=== PATIENT | female | born 1965 | race Hispanic/Latino ===

== ENCOUNTER → 2018-01-11 | Outpatient (CLI) | payer OTHER | END | disposition home or self-care (01) | LOC: RAH 09:26 | PROVIDERS: ATTEND Internal Medicine | DX: Z12.31 Encounter for screening mammogram for malignant neoplasm of breast (principal) | CPT/HCPCS: 77067 ==

== ENCOUNTER → 2019-03-04 | Outpatient (CLI) | payer BC | END | disposition home or self-care (01) | LOC: RAH 09:19 | PROVIDERS: ATTEND Family Medicine | DX: Z12.31 Encounter for screening mammogram for malignant neoplasm of breast (principal) | CPT/HCPCS: 77067 ==

== ENCOUNTER → 2019-08-25 | Outpatient (CLI) | payer BC | END | disposition home or self-care (01) | LOC: RAH 09:09 | PROVIDERS: ATTEND Family Medicine | DX: M47.817 Spondylosis without myelopathy or radiculopathy, lumbosacral region (principal) | CPT/HCPCS: 72100 ==

== ENCOUNTER → 2020-09-14 | Outpatient (CLI) | payer BC | END | disposition home or self-care (01) | LOC: RAH 09:04 | PROVIDERS: ATTEND Family Medicine | DX: Z12.31 Encounter for screening mammogram for malignant neoplasm of breast (principal) | CPT/HCPCS: 77067 ==

== ENCOUNTER 2020-09-23 21:44 | Emergency (ER) | payer BC ==
[~2020-09-23] VITALS: Ht 157.5 cm; Wt 93.4 kg
[2020-09-23] MEDS ORDERED: 0.9%NACL 1000ML 1,000 ML IV ONE ×2 (21:45→23:00)
[2020-09-23 22:59] LABS: APPEARANCE,URINE Clear (CLEAR); BILIRUBIN,URINE Negative (NEGATIVE); COLOR,URINE Dark Yellow (YELLOW); GLUCOSE, URINE (UA) Negative (NEGATIVE); KETONES,URINE Negative (NEGATIVE); LEUKOCYTE ESTERASE ,URINE Negative (NEGATIVE); NITRATE,URINE Negative (NEGATIVE); OCCULT BLOOD,URINE Negative (NEGATIVE); PH,URINE 5.5 (5.0-8.0); PROTEIN,URINE Trace mg/dL (NEGATIVE)
[2020-09-23] MEDS ORDERED: KETOROLAC 30MG VIAL (30MG/ML) IV ONE (23:00)
[2020-09-23] MEDS ORDERED: ONDANSETRON 4MG INJ IVP ONE (23:00)
[2020-09-23] MEDS ORDERED: METOCLOPRAMIDE 10 MG/2 ML VIAL IM ONE (23:00)
[2020-09-23 23:19] LABS: BASOPHILS % (AUTO) 0.2 % (0.0-5.0); HEMATOCRIT 42.5 % (36-48); LYMPHOCYTES % (AUTO) 21.8 % (21.0-51.0); MEAN CORPUSCULAR HEMOGLOBIN 28.5 pg (27.0-33.0); MEAN CORPUSCULAR HGB CONC 32.7 g/dL (32.0-36.0); MEAN CORPUSCULAR VOLUME 87.3 fL (79-99); MONOCYTES % (AUTO) 10.2 % (3.0-13.0); NEUTROPHILS % (AUTO) 67.4 % (40.0-77.0); PLATELET COUNT (AUTO) 193 K/uL (130-400); RED BLOOD CELL COUNT(AUTO) 4.87 MIL/uL (4.00-5.50); RED CELL DISTRIBUTION WIDTH 14.9 % (11.0-15.5); WHITE BLOOD COUNT (AUTO) 5.6 K/uL (4.8-10.8)
[2020-09-23 23:35] LABS: CREATININE 0.8 mg/dL (0.5-1.5)
[2020-09-23 23:40] LABS: ALBUMIN 3.2 g/dL (3.5-5.0); BILIRUBIN,TOTAL 0.4 mg/dL (0.2-1.0); TOTAL PROTEIN, SERUM 7.4 g/dL (6.0-8.3)
[2020-09-24] MEDS ORDERED: ONDA4TAB10 PO (01:07)
[2020-09-24] MEDS ORDERED: PANT40TA54 PO (01:07)
[2020-09-24] MEDS ORDERED: METO-296 PO (01:07)
[2020-09-24] MEDS ORDERED: DICY20TA2 PO (01:07)
[2020-09-24] MEDS ORDERED: MELO7.5T12 PO (01:07)
[2020-09-24] MEDS ORDERED: ACETAMINOPHEN 500 MG TABLET PO ONE (01:30)
[2020-09-24 01:41] VITALS: BP 136/70
== END 2020-09-24 01:46 | disposition home or self-care (01) ==
LOC: EDH 21:44
DX: U07.1 COVID-19 (principal); E86.9 Volume depletion, unspecified; R10.13 Epigastric pain; Z79.899 Other long term (current) drug therapy; I10 Essential (primary) hypertension; Z79.1 Long term (current) use of non-steroidal anti-inflammatories (NSAID); R19.7 Diarrhea, unspecified
CPT/HCPCS: 36415; 71045; 80053; 81003; 83690; 85025; 96361; 96372; 96374; 96375; 99284; J1885; J2405; J2765; J7030

== ENCOUNTER → 2022-12-18 | Outpatient (CLI) | payer BC ==
[~2022-12-18] MED LIST: DICY20TA2 PO; MELO7.5T12 PO; METO-296 PO; ONDA4TAB10 PO; PANT40TA54 PO
== END | disposition home or self-care (01) ==
LOC: RAH 10:46
PROVIDERS: ATTEND Family Medicine
DX: Z12.31 Encounter for screening mammogram for malignant neoplasm of breast (principal)
CPT/HCPCS: 77067

== ENCOUNTER 2024-04-16 02:32 | Emergency (ER) | payer BC ==
[~2024-04-16] VITALS: Ht 157.5 cm; Wt 106.1 kg
[~2024-04-16 02:32] MED LIST changes: +ONDA-243 PO; -ONDA4TAB10 PO
[2024-04-16 02:33] VITALS: TEMP 98.1
--- NOTE | 2024-04-16 03:35 | ERN ---
ED Note History of Present Illness Stated Complaint: FOOT PAIN Chief Complaint: FOOT INJURY/PAIN Time Seen by MD: 03:02 Dictation: This is a 59-year-old female who came to the emergency room with complaints of left great toe pain. This started yesterday and today it became extremely severe that she could not sleep Pain is located at the base of the great toe of left foot. No history of any injury no falls no fever chills or rigors. 184/88 69 18 98.1 96% Allergies: Coded Allergies: No Known Drug Allergies (Unverified Allergy, Unknown, 09/23/20) Home Meds Active Scripts Prednisone (Prednisone) 20 Mg Tablet, 1 TAB PO AD for 6 Days, #14 TAB 0 Refills TAKE 1 TAB BY MOUTH THREE TIMES PER DAY X3 DAYS, THEN TAKE 1 TAB BY MOUTH TWICE A DAY X2 DAYS, THEN TAKE 1 TAB BY MOUTH ONCE A DAY X1 DAY. Prov:PAULINO AGUILERA MD 04/16/24 Colchicine (Colchicine) 0.6 Mg Capsule, 0.6 MG PO TID for 15 Days, #45 CAP 0 Refills Prov:PAULINO AGUILERA MD 04/16/24 Metoclopramide HCl (Reglan) 10 Mg Tablet, 10 MG PO TIDP, #20 TAB 0 Refills Prov:DARIAN CARRERA MD 09/24/20 Pantoprazole Sodium (Pantoprazole Sodium) 40 Mg Tablet.dr, 40 MG PO DAILY, #10 TAB 0 Refills Prov:DARIAN CARRERA MD 09/24/20 Ondansetron (Ondansetron Odt) 4 Mg Tab.rapdis, 4 MG PO Q6HPRN, #20 TAB 0 Refills Prov:DARIAN CARRERA MD 09/24/20 Meloxicam (Mobic) 7.5 Mg Tablet, 7.5 MG PO DAILY, #10 TAB 0 Refills Prov:DARIAN CARRERA MD 09/24/20 Dicyclomine HCl (Bentyl) 20 Mg Tab, 20 MG PO Q6HPRN, #20 TAB 0 Refills Prov:DARIAN CARRERA MD 09/24/20 Past Medical History Past Medical History: Arthritis, Hypertension Surgical History: BTL Family History: Negative History: Not Applicable RN Note Reviewed/Agreed w/PFSH: Yes Review of System Dictation Constitutional: Negative for fever,chills, and weight loss Eyes: Negative for injury, pain,redness, and discharge ENT: Negative for injury,pain or swelling Cardiovascular: Negative for chest pain, palpitations, and edema Respiratory: Negative for shortness of breath, cough, and wheezing, Abdomen/GI: Negative for abdominal pain, nausea, vomiting, diarrhea, and constipation Back: Negative for injury and pain : Negative for injury, bleeding and discharge MS/Extremity: Negative for injury and deformity Skin: Negative for rash, and discoloration Neuro: Negative for headache, weakness, numbness, tingling, and seizure Psych: Negative for suicide ideation, homicidal ideation, and hallucinations Initial Vital Sign VS Vital Signs Date Time Temp Pulse Resp B/P (MAP) Pulse Ox O2 Delivery O2 Flow Rate FiO2 04/16/24 02:33 98.1 89 18 184/88 96 Room Air 0 04/16/24 04:40 21 Physical Exam Dictation General: awake, alert, NAD Head/Face: Normocephalic, atraumatic Eyes: PERRL, EOMI, vision at baseline ENT: oral cavity clear, TMs clear, no signs of infection Neck: Trachea midline, supple, no nuchal rigidity Cardiovascular: RRR, normal S1/S2, No MRGs, no JVD Respiratory: CTAB, no respiratory distress, No rales or wheezes Abdomen: Soft, non-tender, non-distended, normal bowel sounds, no guarding or rebound. Skin: Warm, dry, normal turgor, no rash MS/Extremity: Pulses equal, no cyanosis, neurovascular intact, FROM Neuro: COAx4, GCS 15, strength 5/5, CN 2-12 intact, normal cerebellar exam, normal gait, Psych: Normal behavior, mood, and affect normal Extremities-trace edema without any palpable cords, Homans sign is negative Results (Laboratory/Radiology) Labs Reviewed?: Yes ED Course ED Course Orders Procedure Category Date Status Time Toe(S) 2+Vws Lt RAD 04/16/24 Taken 03:06 Colchicine 0.6mg Tab PHA 04/16/24 In Process (Colchicine 0.6mg T 04:00 Naproxen (Naprosyn) PHA 04/16/24 Complete 04:00 Ketorolac PHA 04/16/24 Complete Tromethamine 15mg/Ml 05:00 Current Medications Medications (Trade) Dose Ordered Sig/Jovana Route PRN Reason Start Time Stop Time Status Last Admin Dose Admin Colchicine (COLCHicine 0.6mg TAB) 0.6 mg ONCE PO 04/16/24 04:00 05/16/24 03:59 04/16/24 03:50 Ketorolac Tromethamine (toRADol) 15 mg ONCE ONCE IM 04/16/24 05:00 04/16/24 05:01 DC 04/16/24 04:59 Naproxen (Naprosyn) 250 mg ONCE ONCE PO 04/16/24 04:00 04/16/24 04:01 DC 04/16/24 03:50 Vital Signs Date Time Temp Pulse Resp B/P (MAP) Pulse Ox O2 Delivery O2 Flow Rate FiO2 04/16/24 04:40 85 18 164/82 97 Room Air* 0 21 04/16/24 02:33 98.1 89 18 184/88 96 Room Air 0 We will perform diagnostic labs, and administer medications according to the patient's complaint. Once the results are available, will review and personally interpreted the labs to rule out any acute life-threatening emergency the trach require immediate intervention and treatment. I will then re-evaluate the patient after treatment and diagnostic exams have return to determine whether the patient requires any further testing, can safely be discharged home or need further admission to hospital for additional treatment and evaluation. Medical Decision Making MDM MDM: Differential diagnosis: Rationale: Tests considered and ordered secondary to shared decision making include: Previous outside records reviewed: Old ER visits. Risk of complication and/or morbidity or mortality of patient management: None Medications-Per medication reconciliation Need for hospitalization: Patient does not meet criteria for hospitalization. Need for emergency major/minor surgery: No There are no social concerns with this patient. Prescription drug management Prescriptions will include symptomatic care Patient's prior external medical records from other ER visits were reviewed by me as indicated. Prior testing and results from previous visits were reviewed. Prior tests were taken into account with medical decision making and resource utilization, independent historian/historians were used to obtain complete medical history. I independently interpreted the test that were performed, results were reviewed by me and considered findings on radiology if ordered. Medical management and examination interpretation discussions were had by me with other qualified healthcare professionals as indicated for the patient's care. Problem List Problem List: (1) Foot pain, left (2) Gouty arthritis of left great toe DX & DISP Disposition: Discharge Departure Impression: Primary Impression: Foot pain, left Additional Impressions: Gout attack, Gouty arthritis of left great toe Condition: Stable Scripts Prednisone (Prednisone) 20 Mg Tablet 1 TAB PO AD for 6 Days, #14 TAB 0 Refills TAKE 1 TAB BY MOUTH THREE TIMES PER DAY X3 DAYS, THEN TAKE 1 TAB BY MOUTH TWICE A DAY X2 DAYS, THEN TAKE 1 TAB BY MOUTH ONCE A DAY X1 DAY. Prov: PAULINO AGUILERA MD 04/16/24 Colchicine (Colchicine) 0.6 Mg Capsule 0.6 MG PO TID for 15 Days, #45 CAP 0 Refills Prov: PAULINO AGUILERA MD 04/16/24 Additional Instructions: Patient and the caregiver have been informed of all the diagnostic tests and the imaging conducted during the today's visit to the emergency room and has verbalized understanding of the results I have personally reviewed and interpreted all diagnostic exams performed here in the ER today as well as the vital signs documented by the nursing staff. The patient is now being discharged to home and should follow up with the primary care physician or the specialist as directed by the ER staff. Follow-up with primary care provider in 1 to 2 days. Take medications as directed here in the emergency room. Okay to continue home medications unless otherwise discussed during your visit in the emergency room today. Return to your nearest emergency room if symptoms worsen or if there is no improvement. Call 911 if you need immediate assistance. Take Tylenol or Motrin [id number] ter as needed and if no contraindications are present. Increase oral hydration. A wound culture or urine culture was ordered here in the emergency room department please follow-up with primary care provider and advise them to get repeat ports from our facility. If you had any Dean wrap/splints that were applied here, please do not remove them until you see your primary care or sp ecialty. Counseling done on abdominal side effects of colchicine which should not be misconstrued but as being therapeutic. Recommended that she could take [id number] Pepcid or PPI-Protonix omeprazole or any equivalent. Referrals: IWONA ROGERS MD (PCP) PAULINO AGUILERA MD Apr 16, 2024 03:35
[2024-04-16] MEDS: NAPROXEN 250 MG TAB PO ONE (03:50)
[2024-04-16] MEDS: COLCHicine 0.6 MG TABLET PO SCH (03:50)
[2024-04-16] MEDS ORDERED: COLC0.6C3 PO (03:52)
[2024-04-16 04:40] VITALS: BP 164/82; PULSE 85; RESP 18; O2SAT 97
[2024-04-16] MEDS ORDERED: PRED20TA3 PO (04:50)
[2024-04-16] MEDS: ketOROlac 15MG/ML VIAL (15MG/ML) IM ONE (04:59)
--- NOTE | 2024-04-16 08:44 | HMCIMG ---
Exam Type: TOE(S) 2+VWS LT Clinical Information: PAIN Comparison: None Findings: The bone examination is unremarkable. No fractures or dislocations are seen. No radiopaque foreign bodies are noted. Soft tissues are preserved. IMPRESSION: Normal examination.
== END 2024-04-16 05:15 | disposition home or self-care (01) ==
LOC: EDH 02:32
DX: M79.672 Pain in left foot (principal); M10.9 Gout, unspecified; M10.072 Idiopathic gout, left ankle and foot; I10 Essential (primary) hypertension; M19.90 Unspecified osteoarthritis, unspecified site; Z79.1 Long term (current) use of non-steroidal anti-inflammatories (NSAID); Z79.899 Other long term (current) drug therapy; Z98.51 Tubal ligation status
CPT/HCPCS: 99284; 73660; 96372; J1885

== ENCOUNTER → 2024-12-22 | Outpatient (CLI) | payer BC ==
[~2024-12-22] MED LIST changes: +COLC0.6C3 PO; +PRED20TA3 PO
== END | disposition home or self-care (01) ==
LOC: RAH 08:29
PROVIDERS: ATTEND Family Medicine
DX: Z12.31 Encounter for screening mammogram for malignant neoplasm of breast (principal)
CPT/HCPCS: 77067